=== PATIENT | female | born 1995 | race Caucasian/White ===

== ENCOUNTER 2017-04-13 11:54 | Emergency (ER) | payer MEDICAID ==
[2017-04-13 12:20] VITALS: BP 125/84; PULSE 92; RESP 18; TEMP 98.2; O2SAT 95
--- NOTE | 2017-04-13 13:27 | EDPHY ---
H & P Time Seen by Provider: 04/13/17 13:17 HPI/ROS: CHIEF COMPLAINT: Sinus infection, cough HISTORY OF PRESENT ILLNESS: 21-year-old female presents to the emergency department by private vehicle complaining of 10 days of rhinorrhea, nasal congestion and facial pain. She states over last few days she has developed a productive cough and is worried that is settling in her chest. She does have a history of asthma. She has used albuterol inhaler in the past. No fevers or chills. No recent travel. She has had sinus infections in the past. No known ill contacts. She does receive flu shots although she has not received 1 this year. Denies back pain. Denies chest pain or difficulty breathing. Denies neck or back pain. REVIEW OF SYSTEMS: Constitutional: No fever, no chills. Eyes: No double or blurry vision. ENT: Facial pain. No sore throat. Respiratory: Cough as above. No shortness of breath Cardiac: No chest pain. Gastrointestinal: No abdominal pain, vomiting or diarrhea. Genitourinary: No dysuria. Musculoskeletal: No neck or back pain. Skin: No rashes. Neurological: No headache. Past Medical/Surgical History: Negative Social History: [employer] student Smoking Status: Never smoked Physical Exam: General Appearance: Alert, no distress. Afebrile. 95% on room air. Eyes: Pupils equal and round. Extraocular motions are all intact. ENT: Mouth: Mucous membranes moist. Tender with palpation over right greater than left maxillary sinus. Respiratory: Clear to auscultation in all gordon except some expiratory wheezing especially in the right base. No rales. No respiratory distress. Cardiovascular: Regular rate and rhythm. Gastrointestinal: Abdomen is soft and nontender, no masses, no rebound or guarding, bowel sounds normal. Neurological: Alert and oriented x 3, cranial nerves II through XII grossly intact Skin: Warm and dry, no rashes. Musculoskeletal: Nontender to palpate along the cervical, thoracic or lumbar spine. Neck is supple. Extremities: Full range of motion and no peripheral edema. Psychiatric: Patient is oriented X 3, there is no agitation. Constitutional: Initial Vital Signs Temperature (C) 36.8 C 04/13/17 12:05 Heart Rate 92 04/13/17 12:05 Respiratory Rate 18 04/13/17 12:05 Blood Pressure 125/84 H 04/13/17 12:05 O2 Sat (%) 95 04/13/17 12:05 O2 Delivery Mode Room Air Allergies/Adverse Reactions: No Known Allergies Allergy (Unverified 04/13/17 12:16) Home Medications: Medication Instructions Recorded Albuterol [Proventil Inhaler HFA 1 - 2 puffs IH Q4PRN PRN #1 mdi 04/13/17 (*)] Amoxicillin/Clavulanate Pot 875 mg PO BID #20 tab 04/13/17 [Augmentin 875 mg tab] Escitalopram Oxalate [Lexapro 10 04/13/17 MG] Levothyroxine [Synthroid 100 mcg 100 mcg PO DAILY06 04/13/17 (*)] Medical Decision Making ED Course/Re-evaluation: 21-year-old female presents to the emergency department with productive cough, facial pain and rhinorrhea. I do not think this patient has pneumonia. I do not think chest x-rays indicated. She will be treated with oral Augmentin. She was given a prescription for albuterol inhaler. She was instructed to return if she develops shortness of breath, change in symptoms or feels worse in any way. Differential Diagnosis: Including but not limited to sinusitis, bronchitis, pneumonia, influenza, viral upper respiratory infection Departure - Departure Disposition: Home, Routine, Self-Care Clinical Impression: Acute bronchitis Qualifiers: Bronchitis organism: unspecified organism Qualified Code(s): J20.9 - Acute bronchitis, unspecified Sinusitis Qualifiers: Sinusitis location: maxillary Chronicity: acute Recurrence: non-recurrent Qualified Code(s): J01.00 - Acute maxillary sinusitis, unspecified Condition: Good Instructions: Sinusitis (ED), Acute Bronchitis (ED) Additional Instructions: Albuterol inhaler 2 puffs every 4 hours as needed for 1 week. Augmentin twice daily for 10 days. Take this medication with food. Referrals: DR GIOVANY [Other] - As per Instructions Prescriptions: Albuterol [Proventil Inhaler HFA (*)] 1 - 2 puffs IH Q4PRN PRN #1 mdi PRN Reason: P.r.n. dyspnea Amoxicillin/Clavulanate Pot [Augmentin 875 mg tab] 875 mg PO BID #20 tab
== END 2017-04-13 13:35 | disposition home or self-care (01) ==
DX: J20.9 Acute bronchitis, unspecified (principal); J01.00 Acute maxillary sinusitis, unspecified

== ENCOUNTER 2017-07-11 10:39 | Emergency (ER) | payer MEDICAID ==
--- NOTE | 2017-07-11 12:10 | EDPHY ---
H & P Stated Complaint: Sinus drainage, cough Time Seen by Provider: 07/11/17 11:15 HPI/ROS: CHIEF COMPLAINT: Cough, sinus pressure HISTORY OF PRESENT ILLNESS: The patient has a history of frequent sinus infections. Her last sinus infection was approximately 3 months ago. She was treated with antibiotics that point time. She presents to the ED today with complaints recurrent sinus pain, pressure, fever and cough. She has a history of asthma and has been using her albuterol sporadically. The patient denies any neck pain, numbness, weakness or additional acute complaints. REVIEW OF SYSTEMS: A comprehensive 10 point review of systems is otherwise negative aside from elements mentioned in the history of present illness. 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 - Social History Smoking Status: Never smoked - Physical Exam Exam: General Appearance: Alert, no distress Eyes: Pupils equal and round no pallor or injection ENT, Mouth: Mucous membranes moist, patient does have bilateral maxillary sinus tenderness Respiratory: There are no retractions, lungs are clear to auscultation Cardiovascular: Regular rate and rhythm Gastrointestinal: Abdomen is soft and nontender, no masses, bowel sounds normal Neurological: A&O, normal motor function, normal sensory exam, normal cranial nerves Skin: Warm and dry, no rashes Musculoskeletal: Neck is supple nontender Extremities: symmetrical, full range of motion Constitutional: Initial Vital Signs Temperature (C) 36.4 C 07/11/17 10:42 Heart Rate 86 07/11/17 10:42 Respiratory Rate 20 07/11/17 10:42 Blood Pressure 105/80 07/11/17 10:42 O2 Sat (%) 97 07/11/17 10:42 O2 Delivery Mode Room Air Allergies/Adverse Reactions: No Known Allergies Allergy (Unverified 04/13/17 12:16) Home Medications: Medication Instructions Recorded Albuterol [Proventil Inhaler HFA 1 - 2 puffs IH Q4PRN PRN #1 mdi 04/13/17 (*)] Escitalopram Oxalate [Lexapro 10 04/13/17 MG] Levothyroxine [Synthroid 100 mcg 100 mcg PO DAILY06 04/13/17 (*)] AZITHROMYCIN [Z-PACK] 250 mg PO DAILY #1 packet 07/11/17 [place]con 0.5-35-28 Tablet 07/11/17 Medical Decision Making ED Course/Re-evaluation: The patient presents to the ED with acute sinusitis. The patient typically treats this with antibiotics. She is nontoxic and well-appearing. The patient will be given a prescription for Augmentin. She is advised to return to the emergency department for markedly worsening symptoms or other concerns. The patient's influenza test is negative. She has no clinical evidence of strep pharyngitis or pneumonia. - Data Points Laboratory Results: 07/11/17 11:00 Nasal Influenza A PCR NEGATIVE FOR FLU A (NEGATIVE) Nasal Influenza B PCR NEGATIVE FOR FLU B (NEGATIVE) Departure - Departure Disposition: Home, Routine, Self-Care Clinical Impression: Acute sinusitis Condition: Good Instructions: Sinusitis (ED) Additional Instructions: 1. Please take antibiotics as directed for sinusitis. 2. Please return to the ED for increasing pain, fever, difficulty breathing or other concerns. 3. Please follow up with the Ear Nose Throat physician you have been referred to for any unimproved symptoms. Referrals: Kirk Gomez MD [Medical Doctor] - As per Instructions
[2017-07-11 12:44] VITALS: BP 103/65; PULSE 62; RESP 17; TEMP 97.6; O2SAT 93
== END 2017-07-11 12:42 | disposition home or self-care (01) ==
DX: J01.90 Acute sinusitis, unspecified (principal); J45.909 Unspecified asthma, uncomplicated